=== PATIENT | female | born 1980 | race Caucasian/White ===

== ENCOUNTER → 2020-10-22 14:48 | Outpatient (CLI) | payer OTHER, SELFPAY | PROVIDERS: PCP Nurse Practitioner Family; Visit Provider Nurse Practitioner Family | DX: Z20.822 Contact with and (suspected) exposure to COVID-19 (principal) | CPT/HCPCS: U0003 ==

== ENCOUNTER → 2021-07-22 14:22 | Outpatient (CLI) | payer OTHER, SELFPAY | PROVIDERS: PCP Nurse Practitioner Family; Visit Provider Nurse Practitioner Family | DX: U07.1 COVID-19 (principal) | CPT/HCPCS: C9803; U0003; U0005 ==

== ENCOUNTER → 2021-11-02 07:51 | Outpatient (CLI) | payer OTHER, SELFPAY ==
--- NOTE | 2021-11-02 07:51 | MM_ITS ---
PROCEDURE INFORMATION: Exam: Bilateral Screening 3D Mammography Exam date and time: 11/02/2021 7:56 AM Age: 41 years old Clinical indication: Baseline. No family history of breast cancer. TECHNIQUE: Imaging protocol: Bilateral Screening tomosynthesis and 2D mammography including computer-aided detection (CAD) when performed. COMPARISON: No relevant prior studies available. If prior mammograms are provided, I am happy to add an addendum. FINDINGS: MAMMOGRAPHY: Breast composition: The breast tissue is composed of scattered areas of fibroglandular density. Mass: Possible 1.0 cm lobulated mass in the right inner lower quadrant, middle 3rd. Intramammary lymph node in the right upper outer quadrant, middle 3rd. Architectural distortion: None. Calcifications: No suspicious calcifications. Asymmetric density: Skin thickening: None. Axillary adenopathy: None. IMPRESSION: Patient to be recalled for right diagnostic spot compression in the CC and MLO and right breast ultrasound for possible asymmetry in the right inner lower breast, as well as right ultrasound to confirm lymph node in the right upper outer breast. ASSESSMENT: BI-RADS Category 0: Incomplete- Need Additional Imaging Evaluation and/or Prior Mammograms for Comparison
== END ==
PROVIDERS: PCP Nurse Practitioner Family; Visit Provider Nurse Practitioner Obstetrics & Gynecology
DX: Z12.31 Encounter for screening mammogram for malignant neoplasm of breast (principal)
CPT/HCPCS: 77063; 77067

== ENCOUNTER → 2021-11-09 13:46 | Outpatient (CLI) | payer OTHER, SELFPAY ==
--- NOTE | 2021-11-09 13:53 | US_ITS ---
PROCEDURE INFORMATION: Exam: US Right Breast, Complete MG Right Diagnostic Breast Tomosynthesis Exam date and time: 11/09/2021 2:31 PM Age: 41 years old Clinical indication: Patient recalled on the basis of a screening mammogram for further evaluation; Right; Mass TECHNIQUE: Imaging protocol: Complete ultrasound of all four quadrants of the Right breast and the retroareolar regions, including ultrasound of the axilla when performed. Right Diagnostic tomosynthesis and 2D mammography including computer-aided detection (CAD) when performed. Unilateral or bilateral exam. COMPARISON: 1. MG MM DIG SCREENING MAMM BI W/CAD 11/02/2021 7:56 AM 2. MG MM DIG MAMM DX UNILAT RT CAD 11/09/2021 1:49 PM FINDINGS: MAMMOGRAPHY: Digital diagnostic spot compression views of the lower inner quadrant and 90 degree lateral view of the right breast demonstrates a fat containing benign-appearing intramammary lymph node in the middle third of the upper quadrant. No definitive mass lesion is identified in the lower inner quadrant ULTRASOUND: Sonographic images of the right breast including the retroareolar region, all 4 quadrants and the axilla do not demonstrate any solid masses. 0.5 cm cyst in the 5 o'clock axis 4 cm from the nipple. This likely correlates with the vague nodularity identified on routine mammographic views. No architectural distortion or acoustical shadowing. No skin thickening or axillary adenopathy. IMPRESSION: No mammographic or sonographic evidence of malignancy. Benign intramammary lymph node in the right upper outer quadrant. Minimal subcentimeter cystic change in the right lower inner quadrant. Annual bilateral mammographic screening is recommended unless otherwise clinically indicated. ASSESSMENT: BI-RADS Category 2: Benign
== END ==
PROVIDERS: PCP Nurse Practitioner Family; Visit Provider Nurse Practitioner Obstetrics & Gynecology
DX: R92.8 Other abnormal and inconclusive findings on diagnostic imaging of breast (principal); N63.10 Unspecified lump in the right breast, unspecified quadrant
CPT/HCPCS: 76641; 77061; 77065; G0279

== ENCOUNTER → 2022-06-01 10:17 | Outpatient (CLI) | payer OTHER, SELFPAY ==
--- NOTE | 2022-06-01 10:27 | XR_ITS ---
FINAL REPORT CLINICAL HISTORY: pain FINDINGS: THORACIC SPINE Two views demonstrate no acute fracture. The disc spaces are well preserved. There is no malalignment. IMPRESSION: No acute process. LUMBAR SPINE Two views demonstrate no acute fracture. The disc spaces are well preserved. There is no malalignment. IMPRESSION: No acute process. Reviewed, Interpreted and Dictated by Leo Hsieh MD Transcribed by Marilou Hernandez Authenticated and [facility]
== END ==
PROVIDERS: PCP Nurse Practitioner Family; Visit Provider Nurse Practitioner Family
DX: M54.6 Pain in thoracic spine (principal)
CPT/HCPCS: 72084

== ENCOUNTER → 2022-06-19 10:20 | Outpatient (CLI) | payer OTHER, SELFPAY ==
--- NOTE | 2022-06-19 10:26 | MR_ITS ---
FINAL REPORT TECHNIQUE: Multiplanar MR without contrast CLINICAL HISTORY: LOWER BACK PAIN x years FINDINGS: Sagittal images show normal vertebral height. Alignment is normal. Marrow signal pattern is unremarkable. L1-2: Unremarkable L2-3: Unremarkable L3-4: Unremarkable L4-5: Unremarkable L5-S1: Unremarkable IMPRESSION: Unremarkable exam Reviewed, Interpreted and Dictated by Shayla Menchaca MD Transcribed by Jaimie Neal Authenticated and [facility]
== END ==
PROVIDERS: PCP Nurse Practitioner Family; Visit Provider Nurse Practitioner Family
DX: M54.50 Low back pain, unspecified (principal)
CPT/HCPCS: 72148; 76376

== ENCOUNTER 2023-08-28 15:19 | Outpatient (CLI) | payer BC, SELFPAY ==
--- NOTE | 2023-08-28 15:27 | US_ITS ---
FINAL REPORT TECHNIQUE: Limited sonographic images of the thyroid were obtained. CLINICAL HISTORY: DISORDER OF THYROID GLAND FINDINGS: The thyroid is enlarged and heterogeneous. The right lobe of the thyroid measures 5.2 x 1.6 x 1.8 cm. The left lobe of the thyroid measures 5.5 x 2.0 x 2.1 cm. No mass or nodule is identified. The isthmus measures 5 mm. IMPRESSION: Enlarged, heterogeneous thyroid Reviewed, Interpreted and Dictated by Emmanuel Griffin III, MD Transcribed by Marilou Hernandez Authenticated and [facility]
== END 2023-08-28 23:59 ==
LOC: RAD 15:20
PROVIDERS: PCP Nurse Practitioner Family; Visit Provider Nurse Practitioner Family
DX: E07.9 Disorder of thyroid, unspecified (principal)
CPT/HCPCS: 76536

== ENCOUNTER 2023-10-08 13:40 | Outpatient (CLI) | payer BC, SELFPAY ==
--- NOTE | 2023-10-08 13:49 | MM_ITS ---
PROCEDURE INFORMATION: Exam: MG Bilateral Screening 3D Mammography Exam date and time: 10/08/2023 1:42 PM Age: 43 years old Clinical indication: Screening mammogram TECHNIQUE: Imaging protocol: Bilateral Screening tomosynthesis and 2D mammography including computer-aided detection (CAD) when performed. COMPARISON: 1. MG MM DIG MAMM DX UNILAT RT CAD 11/09/2021 1:49 PM 2. MG MM DIG SCREENING MAMM BI W/CAD 11/02/2021 7:56 AM 3. US BREAST RT COMPLETE 11/09/2021 2:31 PM FINDINGS: MAMMOGRAPHY: Breast composition: There are scattered areas of fibroglandular density. Mass: None. Architectural distortion: No new or suspicious architectural distortion. Calcifications: No new or suspicious calcifications are present Asymmetric density: No new or suspicious asymmetric density is present Skin thickening: None. Axillary adenopathy: None. IMPRESSION: No mammographic evidence of malignancy. Recommend annual screening mammography unless otherwise clinically indicated. ASSESSMENT: BI-RADS category 1: Negative.
== END 2023-10-08 23:59 ==
LOC: RAD 13:41
PROVIDERS: PCP Nurse Practitioner Family; Visit Provider Nurse Practitioner Family
DX: Z12.31 Encounter for screening mammogram for malignant neoplasm of breast (principal)
CPT/HCPCS: 77063; 77067

== ENCOUNTER 2023-11-04 10:08 | Outpatient (CLI) | payer BC, SELFPAY ==
--- NOTE | 2023-11-04 | CA_ITS ---
APPROVED REPORT EXAM: Comprehensive 2D, Doppler, and color-flow Echocardiogram Obstetrics Gyn Physician: Lennie Gr CRT Ht: 5 ft 6 in Wt: 237lbs BSA: 2.15 BP: 122/78 mmHg Indications: Peripheral Edema 2D Dimensions LA Volume 31.20 mL LA Volume Index 14.20 mL/m2 (M/F) 16-34 M-Mode Dimensions RVDd 3.11 cm (0.9-2.6) LA Diam 3.78 cm (1.9-4.0) LVDd 4.72 cm (3.5-5.7) LVDs 3.32 cm (3.5-5.7) IVSd 1.21 cm (0.6-1.1) PWd 0.50 cm (0.6-1.1) EF (Teich) 56.70% FS 29.70% EDV (Teich) 103.40 mL TAPSE 1.98 (<1.7) ESV (Teich) 44.80 mL LV Diastology E Decel Time 200 (160-240 msec) E/A Ratio 0.94 MED A' 10.50 cm/s LAT A' 9.20 cm/s Aortic Valve AO Peak GR. 8.20 mmHg Mitral Valve MV A Velocity 74.0 (40-130 cm/s) E/A Ratio 0.94 Pulmonary Valve PV Peak Velocity 91.0 (50-150 cm/s) Tricuspid Valve TR P. Velocity 243.00 cm/s RAP Estimate 10.00 mmHg RVSP 33.60 mmHg Left Ventricle The left ventricle is normal size. The left ventricular systolic function is normal. The left ventricular ejection fraction is within the normal range. There is normal left ventricular wall thickness. There is normal LV segmental wall motion. The left ventricular diastolic function is normal. LVEF is 65%. Right Ventricle The right ventricle is normal size. The right ventricular systolic function is normal. Atria The left atrium size is normal. The right atrium size is normal. There is no Doppler evidence of interatrial shunt. Aortic Valve The aortic valve opens well. There is no aortic valvular stenosis. No aortic regurgitation is present. Mitral Valve The mitral valve is normal in structure. No evidence of mitral valve stenosis. There is no mitral valve regurgitation noted. Tricuspid Valve The tricuspid valve leaflets are thin and pliable. Trace tricuspid regurgitation. RVSP is normal. Pulmonic Valve The pulmonary valve is normal in structure. Trace pulmonic regurgitation. Great Vessels The aortic root is normal in size. The ascending aorta is normal in size. IVC is normal in size and collapses >50% with inspiration. Pericardium There is no pericardial effusion. Other Information Study Quality: Fair Conclusion Normal biventricular systolic function. No significant valvular stenosis or regurgitation. Electronically signed by : Shivani Camilo MD 11/07/2023 13:23:17
== END 2023-11-04 23:59 ==
LOC: RT 10:09
PROVIDERS: PCP Nurse Practitioner Family; Visit Provider Nurse Practitioner Family
DX: R60.0 Localized edema (principal)
CPT/HCPCS: 93306

== ENCOUNTER 2023-11-15 07:57 | Outpatient (CLI) | payer BC, SELFPAY ==
--- NOTE | 2023-11-15 07:58 | CA_ITS ---
APPROVED REPORT Exam: Exercise Treadmill Technologist: Mariam Liz, Ht: 5 ft 6 in Wt: 236 lbs BSA: 2.15 m2 HR: 78 bpm BP: 113/79 mmHg Rhythm: NSR Medical History Medications: Lisinopril,,,,, Levothyroxine,,,,, Phentermine,,,,, SeMvastatin,,,,, Levonorgestrel,,,,, Stress Test Details Test: Familia HR Resting HR: 78 bpm Max Heart Rate (APMHR): 177 bpm Max HR Achieved: 168 bpm Target HR (85% APMHR): 150 bpm % of APMHR: 95 Recovery HR: 90 bpm BP Resting BP: 123.0/86.0 mmHg Max BP: 202.0/80.0 mmHg Recovery BP: 140.0/84.0 mmHg BP response to stress: Abnormal hypertensive response to stress. ECG Resting ECG: NSR, cannot R/O old inferior AL Stress ECG: < 0.[address] depression Arrhythmia: None Recovery ECG: Return to baseline within 3 minutes of recovery Recovery Arrhythmia: None Clinical Exercise duration: 07:21 min Highest Stage Achieved: Exercise capacity: 10.1 METs Overall Exercise Capacity for Age: Average Stress ECG Conclusion The patient was able to exercise for a total of 7 minutes, 21 seconds. She achieved a total of 10.1 METS. She has average exercise capacity compared to age and sex matched peers. She has normal HR, but exaggerated BP, response to exercise. Max HR: 168 % of PM: 95% Max BP: 202/80 METs: 10.1 Test stopped due to: SOA, leg fatigue Symptoms: No CP. Arrhythmias/Ectopy: None ST-T Changes: Normal ST response to exercise. Conclusion: Normal GXT. GXT only (no imaging). Exaggerated BP response to exercise. BP control is recommended. Test Summary REST . . . . . . . Sitting REST . . . . . . . Standing REST 03:04 0.0 0.0 78 . 123/ 86 . . Stage 1 01:00 10.0 1.7 112 . . . . Stage 1 02:00 10.0 1.7 127 . . . . Stage 1 03:00 10.0 1.7 126 . 180/ 80 . . Stage 2 01:00 12.0 2.5 141 . . . . Stage 2 02:00 12.0 2.5 147 . . . . Stage 2 03:00 12.0 2.5 149 . 202/ 80 . . Stage 3 01:00 14.0 3.4 165 . . . . Stage 3 01:21 14.0 3.4 167 . . . Stop exercise at 07:21 RECOVERY 01:00 0.0 0.0 142 . . . . RECOVERY 02:00 0.0 0.0 118 . 182/ 89 . . RECOVERY 03:00 0.0 0.0 101 . 182/ 89 . . RECOVERY 04:00 0.0 0.0 93 . 161/ 81 . . RECOVERY 05:00 0.0 0.0 90 . 161/ 81 . . RECOVERY 05:30 0.0 0.0 95 . 140/ 84 . . Electronically signed by : Shivani Camilo MD 11/18/2023 13:27:44
--- NOTE | 2023-11-15 08:38 | XR_ITS ---
FINAL REPORT TECHNIQUE: Chest PA & Lateral CLINICAL HISTORY: dyspnea...hands and leg swelling x 2 months FINDINGS: 2 views of the chest were performed. The heart size is normal. The mediastinum is within normal limits. There is no acute cardiopulmonary process. There are no pleural effusions. There is no pneumothorax. The bony thorax appears intact. IMPRESSION: No acute cardiopulmonary process. Reviewed, Interpreted and Dictated by Leo Hsieh MD Transcribed by Lita Jay Authenticated and [facility]
== END 2023-11-15 23:59 | disposition home or self-care (01) ==
LOC: RT 07:58
PROVIDERS: PCP Nurse Practitioner Family; Visit Provider Physician Assistant
DX: R06.00 Dyspnea, unspecified (principal); R60.0 Localized edema; I10 Essential (primary) hypertension; E78.5 Hyperlipidemia, unspecified; Z82.49 Family history of ischemic heart disease and other diseases of the circulatory system; Z87.891 Personal history of nicotine dependence
CPT/HCPCS: 71046; 93017; 93018

== ENCOUNTER 2024-11-10 18:40 | Outpatient (CLI) | payer BC, SELFPAY ==
--- NOTE | 2024-11-10 18:48 | XR_ITS ---
PROCEDURE INFORMATION: Exam: XR Right Foot Exam date and time: 11/10/2024 6:49 PM Age: 44 years old Clinical indication: Pain; Foot; Right; Additional info: Pain in right foot from dropping metal water bucket on medial side of foot TECHNIQUE: Imaging protocol: Radiologic exam of the right foot. Views: 3 or more views. COMPARISON: No relevant prior studies available. FINDINGS: Bones/joints: Osseous alignment is normal. No acute fracture. No significant arthritic change. Moderate plantar calcaneal spurring. Soft tissues: Moderate dorsal soft tissue swelling of the foot. IMPRESSION: Soft tissue swelling of the foot. No acute osseous abnormality.
== END 2024-11-10 23:59 | disposition home or self-care (01) ==
LOC: RAD 18:42
PROVIDERS: PCP Nurse Practitioner Family; Visit Provider Nurse Practitioner
DX: M79.671 Pain in right foot (principal); M77.31 Calcaneal spur, right foot; R22.41 Localized swelling, mass and lump, right lower limb
CPT/HCPCS: 73630

== ENCOUNTER 2024-12-15 09:25 | Outpatient (CLI) | payer BC, SELFPAY ==
--- NOTE | 2024-12-15 09:28 | XR_ITS ---
FINAL REPORT CLINICAL HISTORY: foot fracture COMPARISON: 11/10/2024 FINDINGS: RIGHT FOOT 3 views of the right foot were obtained. There is no acute fracture or dislocation. There is a large plantar calcaneal spur. A 12 mm os trigonum is noted. There are mild hypertrophic changes of the first MTP joint. Soft tissues are unremarkable. IMPRESSION: No acute bony abnormality. Reviewed, Interpreted and Dictated by Leo Hsieh MD Transcribed by Shaylee Kraus Authenticated and [facility]
== END 2024-12-15 23:59 | disposition home or self-care (01) ==
LOC: RAD 09:26
PROVIDERS: PCP Nurse Practitioner Family; Visit Provider Physician Assistant Surgical
DX: M89.371 Hypertrophy of bone, right ankle and foot (principal); M77.31 Calcaneal spur, right foot
CPT/HCPCS: 73630

== ENCOUNTER 2025-02-23 16:50 | Outpatient (CLI) | payer BC, SELFPAY | END 2025-02-23 23:59 | disposition home or self-care (01) | LOC: RAD 16:52 | PROVIDERS: PCP Nurse Practitioner Family; Referring Provider Nurse Practitioner Obstetrics & Gynecology; Visit Provider Nurse Practitioner Obstetrics & Gynecology | DX: Z12.31 Encounter for screening mammogram for malignant neoplasm of breast (principal) | CPT/HCPCS: 77063; 77067 ==